=== PATIENT | female | born 1955 | race Caucasian/White ===

== ENCOUNTER 2018-08-11 14:39 | Emergency (ER) | payer MEDICARE, OTHER ==
[2018-08-11 14:44] VITALS: BMI 23.6
--- NOTE | 2018-08-11 16:07 | PDOC ---
Attending Attestation - [facility] HPI: 08/11/18 17:00 The patient is a 63 year old female, with a significant PMH of hypertension, hyperlipidemia, and osteopenia, who presents to the emergency department with 3 days of worsening left sided headache. The patient states the headache is worse over the left eye. The patient states her headache today feels like her typical headaches. The patient also endorses nausea with vomiting, dizziness and hot & cold sensations. The patient denies chest pain, or shortness of breath. Denies fever, chills, vomit, diarrhea and constipation. Denies dysuria, frequency, urgency and hematuria. Allergies: iodine, gabapentin Documentation prepared by Sergio Kincaid, acting as medical malpractice paralegal for Susannah Rhodes DO. <Sergio Kincaid - Last Filed: 08/11/18 17:00> - Physicial Exam PE: 08/11/18 18:57 Constitutional: (+) mildly anxious. Awake, alert, oriented. No acute distress. Head: Normocephalic. Atraumatic Eyes: PERRL. EOMI. Conjunctivae are not pale. ENT: Mucous membranes are moist and intact. Posterior pharynx without exudate or erythema. Uvula midline. Neck: Supple. Full ROM. No lymphadenopathy. Cardiovascular: Regular rate. Regular rhythm. S1, S2 regular. Distal pulses are 2+ and symmetric. Pulmonary/Chest: No evidence of respiratory distress. Clear to auscultation bilaterally No wheezing, rales or rhonchi. Abdominal: Soft and non-distended. There is no tenderness. No rebound, guarding or rigidity. No organomegaly. No palpable masses. Good bowel sounds. Back: No CVA tenderness. Musculoskeletal: No edema. No cyanosis. No clubbing. Full range of motion in all extremities. Nocalf tenderness. Radial/pedal pulses are intact and 2+ bilaterally Skin: Skin is warm and dry. No petechiae. No purpura. Neurological: Alert and oriented to person, place, and time. Cranial nerves II -XII are grossly intact. Normal speech. Strength is grossly symmetric. No sensory deficits. Psychiatric: Good eye contact. Normal interaction, affect and behavior. - Medical Decision Making 08/11/18 18:57 Documentation prepared by Samira Christianson, acting as medical malpractice paralegal for Susannah Rhodes DO <Samira Christianson - Last Filed: 08/11/18 18:57> - Resident Resident Name: Marcio Sosa - ED Attending Attestation I have performed the following: I have examined & evaluated the patient, The case was reviewed & discussed with the resident, I agree w/resident's findings & plan, Exceptions are as noted - HPI HPI: 08/11/18 19:39 63yo female with a 3 week hx of ringing sensation to her head and a feeling of anxiety. States feeling depressed since the loss of 2 family members. Pt denies SI/HI. No blurred vision, no paresthesias. No neck pain. NO f/c. NO cp/sob. No abd pain. NO n/v/d. No dysuria. No weakness. Saw her PMD as an outpt who recommended MRI imaging. Also follows with the [facility] therapists. - Medical Decision Making 08/11/18 16:07 I, Dr. Susannah Rhodes, DO, attest that this document has been prepared under my direction and personally reviewed by me in its entirety. I further attest, that it accurately reflects all work, treatment, procedures and medical decision -making performed by me. 08/11/18 17:54 a/p: 63yo female with a 3 week hx of ringing sensation and ma in her head- no injury -also states she has been having depression/anxiety secondary to the loss of 2 family members, has been speaking with a therapist at [facility], but is requesting a psychiatrist as an outpt -denies SI/HI -states she feels tearful and depressed -c/o ringing sensation to her head and ma -neuro intact -no meningeal signs -ma x 3 weeks, gradual onset -will send labs, head ct, will monitor and reassess 08/11/18 18:[address] negative labs reviewed pt pending cxr 08/11/18 19:38 cxr clear 08/11/18 20:24 ma resolved pt ambulatory in the ED with a steady gait <Susannah Rhodes - Last Filed: 08/11/18 20:25> Heart Score/ECG Review - ECG Intrepretation Comment:: 08/11/18 17:57 sinus at 72, nl axis, nl interval, no acute st/t wave findings <Susannah Rhodes - Last Filed: 08/11/18 20:25>
--- NOTE | 2018-08-11 16:08 | PDOC ---
History of Present Illness - General Chief Complaint: Headache Stated Complaint: Headache Time Seen by Provider: 08/11/18 16:04 History Source: Patient, Old Records Exam Limitations: Language Barrier - History of Present Illness Initial Comments: HPI: 63 y/o female presenting to [facility] ER complaining of headache and generalized weakness worsening over the past three days. Pain is worse over her left eye but radiates through the entire head. Endorses left eye pain and bilateral lacrimation. Symptoms started with a sense of nervousness and the sounds of birds chirping and crickets. Endorses blurry vision, dizziness, nausea without emesis, chest and abdominal pain described as nervousness. Has not attempted relief with OTC medications. Takes percocet daily for chronic pain Pt has a h/ o of similar symptoms. Was scheduled to have either an outpatient MRI or CT but did not have it performed secondary to anxiety. Reported to ED attending that she has a long standing anxiety and depression. Further reports multiple close family member deaths in the past several months. Follows with a therapist but would like to be evaluated by a psychiatrist as an outpatient. Pt is Divehi speaking only. Telephone healthcare interpreter used for interview. PCP: [facility]. Unable to recall name. Medical Hx: - HTN - Chronic Pain Syndrome, managed with percocet - Onychomycosis - Anxiety with Depression - Gerd - Clicking tinnitus of R ear Past History - Past Medical History Allergies/Adverse Reactions: Allergies Allergy/AdvReac Type Severity Reaction Status Date / Time iodine AdvReac Severe Difficulty Verified 08/11/18 14:44 Breathing gabapentin AdvReac Unknown nausea, Verified 08/11/18 14:44 vomiting Home Medications: Ambulatory Orders Aspirin [ASA -] 81 mg PO DAILY 06/09/16 Atorvastatin Ca [Lipitor] 10 mg PO HS 06/09/16 Losartan Potassium [Cozaar -] 50 mg PO DAILY 01/06/18 Diclofenac Sodium [Voltaren] 2 gm TP TID PRN 30 Days #3 tube 07/13/18 Nystatin 15 gm TP BID 07/13/18 Omeprazole 40 mg PO DAILY 07/13/18 Ergocalciferol (Vitamin D2) [Vitamin D2] 50,000 unit PO Q7D #4 capsule 08/05/18 Oxycodone HCl/Acetaminophen [Percocet 5-325 mg Tablet] 1 tab PO TID PRN #60 tablet MDD 3 08/05/18 Asthma: No Cancer: No Cardiac Disorders: No COPD: No Dementia: No Diabetes: No GI Disorders: No Disorders: No HTN: Yes Hypercholesterolemia: Yes Liver Disease: No Seizures: No Thyroid Disease: No - Suicide/Smoking/Psychosocial Hx Smoking History: Never smoked Have you smoked in the past 12 months: No Information on smoking cessation initiated: No Hx Alcohol Use: No Drug/Substance Use Hx: No Substance Use Type: None Hx Substance Use Treatment: No Review of Systems - Review of Systems Able to Perform ROS?: Yes Comments:: In addition to that documented in the HPI above, the additional ROS was obtained : Constitutional: Denies fevers or chills Eyes: Endorses blurry vision but would not clarify if this was a chronic or acute change ENMT: Denies sore throat CV: Endorses chest pain at center of chest when pressing Resp: Denies SOB GI: Denies vomiting or diarrhea : Denies painful urination MSK: Denies recent trauma Skin: Denies new rashes Neuro: Denies new numbness or tingling or weakness Endocrine: Denies polyuria Heme: Denies bleeding or bruising Is the patient limited Cymro proficient: Yes *Physical Exam - Vital Signs Last Vital Signs Temp Pulse Resp BP Pulse Ox 98.8 F 71 18 139/65 100 08/11/18 14:42 08/11/18 14:42 08/11/18 14:42 08/11/18 14:42 08/11/18 14:42 - Physical Exam Comments: Constitutional: Well-developed, well-nourished adult female in no acute distress or obvious discomfort. Found semi-fowlers in hospital bed. Alert and oriented x4. Answered all questions appropriately and completely. Speech was non -labored, non-pressured. Head: Normocephalic. No obvious external signs of trauma. Eyes: Pupils 4mm and PERRL bilaterally. Sclerae white. Conjunctiva moist and not injected. EARS: Hearing grossly intact. NOSE: No nasal discharge. THROAT: Oral cavity and pharynx normal. No inflammation, swelling, exudate, or lesions. Moist mucosal membranes. Neck: Supple, trachea is midline. Cardiovascular: Regular rate and regular rhythm. No murmur, rubs, clicks, or gallops. Peripheral pulses: Radial pulses full. Respiratory: Breathing unlabored. Equal chest rise and fall. Clear to auscultation bilaterally. No stridor, no wheezing, no rhonchi. Gastrointestinal: abdomen is soft, non-tender, non-distended. Neuro: Alert and oriented. Moving all four extremities spontaneously. Cranial nerves intact. Intact sensation to all four extremities. Upper and lower extremities: proximal and distal strength 5/5. Phlebotomist Associate strength 5/5 - equal and symmetric. Plantar flexion and dorsiflexion 5/5. Walked in room but used surfaces to assist. Skin: Warm, dry, and intact. Psych: Affect: nervous. Mood: anxious. Tearful during exam. Moderate Sedation - Procedure Monitoring Vital Signs: Procedure Monitoring Vital Signs Temperature 98.8 F 08/11/18 14:42 Pulse Rate 71 08/11/18 14:42 Respiratory Rate 18 08/11/18 14:42 Blood Pressure 139/65 08/11/18 14:42 O2 Sat by Pulse Oximetry (%) 100 08/11/18 14:42 ED Treatment Course - LABORATORY CBC & Chemistry Diagram: 08/11/18 17:13 08/11/18 17:13 Medical Decision Making - Medical Decision Making *Reviewed vital signs, nursing notes, and prior visit documentation (if available). 63 y/o female presenting with three days of worsening headache radiating from left eye with eye pain and lacrimation. H/o of similar symptoms, but has not completed outpatient workup. Also endorsing increased anxiety/depression following the of multiple family members. Suspect headache is possible cluster headache versus migraine. Will administer low dose oxygen therapy via nasal cannula, reglan, and ibuprofen. Will obtain head CT given age and poor adherence to outpatient follow up. Based on pts description of chest and abdominal pain suspect this is related to anxiety. Will obtain EKG, CXR, and basic labs. Will not obtain cardiac profile given description of symptoms and single risk factor of HTN. CBC unremarkable for anemia or leukocytosis. CMP unremarkable for electrolyte derangement. LFTs not elevated. BUN and Cr at baseline. eGFR >60. Head CT unremarkable for acute intracranial process. CXR unremarkable for acute cardiopulmonary process per ED wet read. Formal radiology report to follow. 18:52 Pt self ambulate without difficulty to doctors station to explain that she was nervous. Reassured pt. 20:00 Pt reasessed. States her headache and dizziness have resolved. Continues to complain of nervousness. Administered Vistaril. Will provide outpatient psychiatric referral. Continue to suspect cluster headache versus migraine headache with overlying acute anxiety exacerbation. Will provided outpatient referral to neurology for chronic headaches and ENT for tinnitus versus auditory migraine component. Discussed imaging and laboratory results with pt. Answered all questions. Provided return precautions. Pt expressed verbal understanding and agreement with plan to discharge home with outpatient follow up. *DC/Admit/Observation/Transfer Diagnosis at time of Disposition: Headache around the eyes - Discharge Dispostion Disposition: HOME Condition at time of disposition: Good Decision to Admit order: No - Referrals Referrals: Modesta Pavon MD [Primary Care Provider] - Светлана Koehler MD [Staff Physician] - Dalton Nunez MD [Staff Physician] - Pavan Handley MD [Staff Physician] - - Patient Instructions Printed Discharge Instructions: DI for Migraine, DI for Headache, DI for Cluster Headache Additional Instructions: You were seen today for a headache, dizziness, and nervousness. Your xrays and blood work did not show signs of an emergent condition. Your headache got better with Reglan and Ibuprofen. You were given a low dose of Vistaril for your anxiety. You should follow up with your primary care doctor within the next week to make sure you are healing. I have also provided referrals to the following doctors: 1) Dr. Koehler for psychiatry 2) Dr. Nunez for neurology and help with your headaches 3) Dr. Handley for ear, nose and throat for help with the noise in your ears The numbers for each of these doctors in included in this packet. You will need to call to make an appointment. I have attached the results of todays visit to this packet. Take it with you to your doctors appointments so they can see it. Go to the nearest emergency department if your condition worsens or you feel like you need additional emergency evaluation. Debe hacer un seguimiento con vigil mdico de atencin primaria dentro de la prxima semana para asegurarse de que est sanando. Tahir bravo proporcionado referencias a los siguientes mdicos: 1) Dr. Koehler para psiquiatra. 2) Dr. Nunez para neurologa y ayuda con irina amadeo de live. 3) Dr. Handley para el odo, nariz y garganta para ayuda con el ruido en irina odos Los nmeros para cada mary de estos mdicos estn incluidos en alina paquete. Tendr que llamar para hacer pablo linda. Adjunto los resultados de la visita de dionna a alina paquete. Llvelo con usted a las citas con vigil mdico para que lo puedan yoni. Dirjase al departamento de emergencias ms cercano si vigil condicin empeora o si mikel que necesita pablo evaluacin de emergencia adicional. Print Language: ITALIAN - Post Discharge Activity
[2018-08-11] MEDS ORDERED: METOCLOPRAMIDE HCL INJECTION 10 MG/2 ML VIAL IVPUSH ONE (16:44)
[2018-08-11] MEDS ORDERED: IBUPROFEN 600 MG TABLET (FP) PO ONE ×2 (16:45→17:02)
[2018-08-11] MEDS ORDERED: LACTATED RINGERS SOLUTION 1000 ML INFUS.BAG IV ONE (16:45)
[2018-08-11] MEDS ORDERED: METOCLOPRAMIDE HCL INJECTION 10 MG/2 ML VIAL ONE (17:01)
[2018-08-11 17:58] LABS: ALBUMIN 3.8 g/dl (3.4-5.0); ALK PHOS 52 U/L (45-117); ANION GAP 7 MMOL/L (8-16); BILIRUBIN,TOTAL 0.2 mg/dL (0.2-1); BLOOD UREA NITROGEN 23 mg/dL (7-18); CALCIUM 8.9 mg/dL (8.5-10.1); CHLORIDE 105 mmol/L (98-107); CO2 27 mmol/L (21-32); CREATININE 0.8 mg/dL (0.55-1.3); GLUCOSE,RANDOM 85 mg/dL (74-106); POTASSIUM 4.1 mmol/L (3.5-5.1); SGOT/AST 17 U/L (15-37); SGPT/ALT 22 U/L (13-61); SODIUM 138 mmol/L (136-145); TOT PROT 7.1 g/dl (6.4-8.2)
[2018-08-11 18:48] LABS: BASO % 0.6 % (0-2.0); EOS % 2.8 % (0-4.5); LYMPH % 17.6 % (8-40); MCH 31.7 pg (25.7-33.7); MCHC 35.2 g/dl (32.0-36.0); MEAN CELL VOLUME 90.1 fl (80-96); MEAN PLT VOLUME 8.1 fl (7.5-11.1); MONO % 5.7 % (3.8-10.2); NEUT % 73.3 % (42.8-82.8); PLATELET COUNT 289 K/MM3 (134-434); RBC 4.11 M/mm3 (3.60-5.2); RDW 13.1 % (11.6-15.6); WHITE BLOOD COUNT 8.7 K/mm3 (4.0-10.0)
[2018-08-11] MEDS ORDERED: hydrOXYzine PAMOATE 25 MG CAPSULE (FP) PO ONE (19:06)
[2018-08-11] MEDS ORDERED: hydrOXYzine HCL 50 MG/ML VIAL IM ONE (19:53)
[2018-08-11 20:08] VITALS: BP 138/57; PULSE 72; TEMP 98.6
--- NOTE | 2018-08-12 09:40 | EKG ---
Test Reason : Blood Pressure : / mmHG Vent. Rate : 072 BPM Atrial Rate : 072 BPM P-R Int : 122 ms QRS Dur : 084 ms QT Int : 402 ms P-R-T Axes : 068 077 063 degrees QTc Int : 440 ms NORMAL SINUS RHYTHM POSSIBLE LEFT ATRIAL ENLARGEMENT BORDERLINE ECG WHEN COMPARED WITH ECG OF 15-APR-2015 14:45, NO SIGNIFICANT CHANGE WAS FOUND Confirmed by AGATA HENDERSON, NICK ([id number]) on 08/12/2018 9:39:42 AM Referred By: Confirmed By:NICK PARMAR MD
== END 2018-08-11 21:51 | disposition home or self-care (01) ==
LOC: JER 14:39
PROC: 3E033GC Introduction of Other Therapeutic Substance into Peripheral Vein, Percutaneous Approach (ICD-10-PCS; principal; 2018-08-11)
DX: R51 Headache (principal); I10 Essential (primary) hypertension; G89.4 Chronic pain syndrome; K21.9 Gastro-esophageal reflux disease without esophagitis; F41.9 Anxiety disorder, unspecified; H93.11 Tinnitus, right ear
CPT/HCPCS: 36415; 70450-TC; 71046-TC-FY; 80053; 85025; 93005; 93010; 99283-25

== ENCOUNTER 2019-05-27 18:32 | Observation (INO) | payer MEDICARE, OTHER ==
[2019-05-27 18:54] VITALS: BMI 25.7
[2019-05-27] MEDS ORDERED: SODIUM CHLORIDE 1,000 ML IV STA (19:25)
[2019-05-27] MEDS ORDERED: ASPIRIN 81 MG CHEWABLE TABLETS PO ONE (19:25)
[2019-05-27 19:53] LABS: BASO % 0.6 % (0-2.0); EOS % 0.2 % (0-4.5); HEMATOCRIT 40.8 % (32.4-45.2); HEMOGLOBIN 13.5 GM/dL (10.7-15.3); LYMPH % 18.9 % (8-40); MCH 29.7 pg (25.7-33.7); MEAN CELL VOLUME 90.2 fl (80-96); MEAN PLT VOLUME 7.6 fl (7.5-11.1); MONO % 6.9 % (3.8-10.2); NEUT % 73.4 % (42.8-82.8); PLATELET COUNT 256 K/MM3 (134-434); RBC 4.53 M/mm3 (3.60-5.2); RDW 12.7 % (11.6-15.6); WHITE BLOOD COUNT 9.6 K/mm3 (4.0-10.0)
--- NOTE | 2019-05-27 19:53 | PDOC ---
History of Present Illness - General Chief Complaint: Chest Pain Stated Complaint: CHEST PAIN Time Seen by Provider: 05/27/19 19:24 History Source: Patient Exam Limitations: No Limitations - History of Present Illness Initial Comments: 05/27/19 19:46 63 yo female pmh HTN, HLD and chronic back pain presents to the ED for 3 days of worsening non exertional CP with associated palpitations and SOB. Pt states the pain began 3 days ago while resting at home, described as pressure like without radiation. Pt states she has become SOB increasingly while laying flat and walking a approx 100 feet. Denies cardiac hx, never had stress test or echo , never seen cardiology, denies weight changes or hx of substance abuse. Pt denies calf tenderness, smoking hx, recent travel, F/C/N/V, abdominal pain, unilateral neurological symptoms. Pt admits to intermitted bilateral lower limb swelling, currently does not have any Past History - Past Medical History Allergies/Adverse Reactions: Allergies Allergy/AdvReac Type Severity Reaction Status Date / Time iodine AdvReac Severe Difficulty Verified 05/27/19 18:50 Breathing gabapentin AdvReac Unknown nausea, Verified 05/27/19 18:50 vomiting Home Medications: Ambulatory Orders Aspirin [ASA -] 81 mg PO DAILY 06/09/16 Losartan Potassium [Cozaar -] 50 mg PO DAILY 01/06/18 Nystatin 15 gm TP BID 07/13/18 Omeprazole 40 mg PO DAILY 07/13/18 Fluoxetine HCl [Prozac -] 10 mg PO DAILY 10/12/18 Hydrochlorothiazide [Hctz -] 25 mg PO DAILY 10/12/18 Diclofenac Sodium [Voltaren] 2 gm TP TID PRN #3 tube 04/12/19 Acetaminophen [Tylenol -] 500 mg PO Q8H #90 tablet 05/19/19 Ergocalciferol (Vitamin D2) [Vitamin D2] 50,000 unit PO Q7D #4 capsule 05/19/19 hydrOXYzine PAMOATE [Vistaril -] 25 mg PO BID #60 capsule 05/19/19 Asthma: No Cancer: No Cardiac Disorders: No COPD: No CHF: No Dementia: No Diabetes: No GI Disorders: No Disorders: No HTN: Yes Hypercholesterolemia: Yes Liver Disease: No Seizures: No Thyroid Disease: No - Psycho Social/Smoking Cessation Hx Smoking History: Never smoked Have you smoked in the past 12 months: No Information on smoking cessation initiated: No Hx Alcohol Use: No Drug/Substance Use Hx: No Substance Use Type: None Hx Substance Use Treatment: No Review of Systems - Review of Systems Constitutional: No: Chills, Fever HEENTM: No: Blurred Vision Respiratory: Yes: Orthopnea, Shortness of Breath. No: Cough, Wheezing Cardiac (ROS): Yes: Chest Pain. No: Edema ABD/GI: No: Constipated, Diarrhea, Nausea, Vomiting : No: Burning, Dysuria, Flank Pain, Hematuria Musculoskeletal: Yes: Back Pain (chronic) Integumentary: No: Change in Color Neurological: No: Headache, Numbness, Paresthesia, Weakness *Physical Exam - Vital Signs Last Vital Signs Temp Pulse Resp BP Pulse Ox 99.4 F 71 17 165/82 100 05/27/19 18:47 05/27/19 18:47 05/27/19 18:47 05/27/19 18:47 05/27/19 18:47 - Physical Exam General Appearance: Yes: Nourished, Appropriately Dressed. No: Apparent Distress HEENT: positive: EOMI, [place] Neck: positive: Supple. negative: Rigid Respiratory/Chest: positive: Lungs Clear, Normal Breath Sounds. negative: Accessory Muscle Use, Crackles, Rales, Rhonchi, Stridor, Wheezing Cardiovascular: positive: Regular Rhythm, Regular Rate, S1, S2. negative: Edema , JVD, Murmur Vascular Pulses: Dorsalis-Pedis (R): 4+, Doralis-Pedis (L): 4+ Gastrointestinal/Abdominal: positive: Flat, Soft. negative: Protuberent, Distended, Guarding, Rebound, Tenderness Musculoskeletal: negative: CVA Tenderness Extremity: positive: Normal Inspection, Normal Range of Motion Integumentary: positive: Normal Color, Dry, Warm Neurologic: positive: Fully Oriented, Alert, Normal Mood/Affect, Normal Response Heart Score/ECG Review - History History: Slightly suspicious - Electrocardiogram EKG: Normal - Age Age: >/= 65 - Risk Factors Risk Factors Heart Score: Yes Hx Hypercholesterolemia, Yes Hx Hypertension, No Positive family hx of cardiac disease, Yes Hx Obesity Based on the list above the patient has:: >/=3 risk factors or Hx atherosclerotic disease - Troponin Troponin: </= normal limit - Score Heart Score - Total: 4 - ECG Intrepretation Rhythm: Regular Rhythm - [place]: Normal ED Treatment Course - LABORATORY CBC & Chemistry Diagram: 05/27/19 19:42 05/27/19 19:42 Medical Decision Making - Medical Decision Making 05/27/19 20:07 63 yo female pmh HTN, HLD and chronic back pain presents to the ED for 3 days of worsening non exertional CP with associated palpitations and SOB. Pt states the pain began 3 days ago while resting at home, described as pressure like without radiation. Pt states she has become SOB increasingly while laying flat and walking a approx 100 feet. Denies cardiac hx, never had stress test or echo , never seen cardiology, denies weight changes or hx of substance abuse. Pt denies calf tenderness, smoking hx, recent travel, F/C/N/V, abdominal pain, unilateral neurological symptoms. Pt admits to intermitted bilateral lower limb swelling, currently does not have any vitals WNL DDX INLT: ACS, PE, CH, GERD, MSK Labs including trops and BNP WNL EKG NSR without concerning signs of ischemia CXR WNL Pt heart score 4, pt will require tele obs admission and repeat trops 05/27/19 20:46 Micro blog sent to hospitalist 05/27/19 22:01 Hospitalist accept admission to tele obs Discharge - Discharge Information Problems reviewed: Yes Clinical Impression/Diagnosis: Chest pain Qualifiers: Chest pain type: unspecified Qualified Code(s): R07.9 - Chest pain, unspecified Condition: Stable - Admission Yes - Follow up/Referral - Patient Discharge Instructions - Post Discharge Activity
[2019-05-27] MEDS ORDERED: ASPIRIN 81 MG CHEWABLE TABLETS ONE (19:59)
[2019-05-27 20:05] LABS: INR 0.95 (0.83-1.09); PROTHROMBIN TIME (PATIENT) 11.2 SEC (9.7-13.0)
[2019-05-27 20:18] LABS: ALBUMIN 4.1 g/dl (3.4-5.0); BILIRUBIN,TOTAL 0.3 mg/dL (0.2-1); BLOOD UREA NITROGEN 20.9 mg/dL (7-18); CALCIUM 9.2 mg/dL (8.5-10.1); CREATININE 0.9 mg/dL (0.55-1.3); MAGNESIUM 2.2 mg/dL (1.8-2.4); N-TERMINAL BNP 328.4 pg/ml (5-125); POTASSIUM 4.2 mmol/L (3.5-5.1); TOT PROT 7.6 g/dl (6.4-8.2)
--- NOTE | 2019-05-27 20:31 | PDOC ---
Documentation entered by Guerita Melgar SCRIBE, acting as scribe for Trey Valdez MD. Trey Valdez MD: This documentation has been prepared by the aroldoibe, Guerita Melgar SCRIBE, under my direction and personally reviewed by me in its entirety. I confirm that the documentation accurately reflects all work, treatment, procedures, and medical decision making performed by me. Attending Attestation - Resident Resident Name: Connor Pascual - ED Attending Attestation I have performed the following: I have examined & evaluated the patient, The case was reviewed & discussed with the resident, I agree w/resident's findings & plan, Exceptions are as noted - HPI HPI: 05/27/19 19:48 64 F with h/o HTN, HLD presenting with 3 days of constant chest pain. Endorses SOB only when she lies flat. Denies any BHANDARI. Denies exertional or pleuritic nature of chest pain. Denies leg swelling. No F/C. No cough. - Physicial Exam PE: 05/27/19 20:03 "GENERAL: Awake, alert, and fully oriented, in no acute distress. HEAD: No signs of trauma EYES: PERRLA, EOMI, sclera anicteric, conjunctiva clear ENT: Auricles normal inspection, hearing grossly normal, nares patent, oropharynx clear without exudates. Moist mucosa NECK: Nontender, no stepoffs, Normal ROM, supple, no lymphadenopathy, JVD, or masses LUNGS: Breath sounds equal, clear to auscultation bilaterally. No wheezes, and no crackles HEART: Regular rate and rhythm, normal S1 and S2, no murmurs, rubs or gallops ABDOMEN: Soft, nontender, normoactive bowel sounds. No guarding, no rebound. No masses EXTREMITIES: Normal range of motion, no edema. No clubbing or cyanosis. No cords, erythema, or tenderness NEUROLOGICAL: Cranial nerves II through XII intact. 5/5 strength and sensation in all extremities, Normal speech, normal gait, normal cerebellar function SKIN: Warm, Dry, normal turgor, no rashes or lesions noted. - Medical Decision Making 05/27/19 20:03 64 F with chest pain x 3 days. Will r/o ACS. Pt with no PE risk factors, no clinical signs of DVT, normal vitals. Also consider CHF given orthopnea but no clinical signs of volume overload on exam. - Labs, trop, BNP - CXR - Admit tele
--- NOTE | 2019-05-27 21:09 | PN ---
Teaching Attending Note Name of Resident: Moriah Garcia ATTENDING PHYSICIAN STATEMENT I saw and evaluated the patient. I reviewed the resident's note and discussed the case with the resident. I agree with the resident's findings and plan as documented. SUBJECTIVE: Patient is a 63 year old woman with PMH of HTN, HLD and Chronic back pain who presents to the ER for 3 days of worsening nonexertional chest pain associated with palpitations and SOB. Pain began 3 days ago while resting at home, described as pressure like without radiation. She has become SOB increasingly while laying flat and walking approx 100 feet. Denies cardiac history. Has never had stress test or echo, seen cardiology, or had recent weight changes. Does not smoke, abuse alcohol or illicit drugs. Denies calf tenderness, fever, chills, nausea, vomiting, change in bowel habit, recent travel or sick contacts. Patient admits to intermitted bilateral lower limb swelling but currently has no leg swelling. No FH of CAD. OBJECTIVE: Alert Vital Signs Period Temp Pulse Resp BP Sys/Borrego Pulse Ox Last 24 Hr 99.4 F 71 17 165/82 100 HEENT: No Jaundice, eye redness or discharge, PERRLA, EOMI. Normocephalic, atraumatic. External ears are normal and hearing is grossly intact. No nasal discharge. Neck: Supple, nontender. No palpable adenopathy or thyromegaly. No JVD Chest: Good effort. Clear to auscultation and percussion. Heart: Regular. No S3, rub or murmur Abdomen: Not distended, soft, nontender and no HSM. No rebound or guarding. Normal bowel sounds. Ext: Peripheral pulses intact. No leg edema. Skin: Warm and dry. No petechiae, rash or ecchymosis. Neuro: Alert. Oriented x3. CN 2-12 grossly intact. Sensation grossly intact in all four extremities and DTR are symmetric. Psych: Appropriate mood and affect. Good insight. Home Medications Medication Instructions Recorded Aspirin [ASA -] 81 mg PO DAILY 06/09/16 Losartan Potassium [Cozaar -] 50 mg PO DAILY 01/06/18 Nystatin 15 gm TP BID 07/13/18 Omeprazole 40 mg PO DAILY 07/13/18 Fluoxetine HCl [Prozac -] 10 mg PO DAILY 10/12/18 Hydrochlorothiazide [Hctz -] 25 mg PO DAILY 10/12/18 Diclofenac Sodium [Voltaren] 2 gm TP TID PRN #3 tube 04/12/19 Acetaminophen [Tylenol -] 500 mg PO Q8H #90 tablet 05/19/19 Ergocalciferol (Vitamin D2) 50,000 unit PO Q7D #4 capsule 05/19/19 [Vitamin D2] hydrOXYzine PAMOATE [Vistaril -] 25 mg PO BID #60 capsule 05/19/19 Abnormal Lab Results 05/27/19 19:42 Anion Gap 7 L BUN 20.9 H Random Glucose 129 H B-Natriuretic Peptide 328.4 H ASSESSMENT AND PLAN: 1. Chest pain - Patient became pain free while in the ER. Got Aspirin 162 mg in the ER. EKG is NSR with LAE and no ischemic changes and initial troponin is negative. CXR shows mild cardiomegaly but no infiltrates, pneumothorax or effusion. Will admit to telemetry to rule out ACS, get ECHO and check HbA1c. Urinalysis pending. Will continue comprehensive care for all of patients comorbid conditions. 2. Hypertension - Restart suitable outpatient antihypertensive drugs when clinically appropriate. 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 Nonpharmacologic measures to control hypertension like weight loss , salt restriction and exercise discussed. Importance of adherence to treatment regimen and attainment of normotension emphasized. 3. DVT prophylaxis - Lovenox 40 mg SQ q 24 hours. 4. Advance directives - Full code
[2019-05-27] MEDS ORDERED: PROCHLORPERAZINE INJECTION 10 MG/2 ML VIAL IVPB PRN (22:28)
--- NOTE | 2019-05-27 22:28 | HP ---
CHIEF COMPLAINT: PCP: HISTORY OF PRESENT ILLNESS: ER course was notable for: (1) (2) (3) Recent Travel: PAST MEDICAL HISTORY: PAST SURGICAL HISTORY: Social History: Smoking: Alcohol: Drugs: Allergies iodine Adverse Reaction (Severe, Verified 05/27/19 18:50) Difficulty Breathing gabapentin Adverse Reaction (Unknown, Verified 05/27/19 18:50) nausea, vomiting HOME MEDICATIONS: Home Medications Medication Instructions Recorded Aspirin [ASA -] 81 mg PO DAILY 06/09/16 Losartan Potassium [Cozaar -] 50 mg PO DAILY 01/06/18 Nystatin 15 gm TP BID 07/13/18 Omeprazole 40 mg PO DAILY 07/13/18 Fluoxetine HCl [Prozac -] 10 mg PO DAILY 10/12/18 Hydrochlorothiazide [Hctz -] 25 mg PO DAILY 10/12/18 Diclofenac Sodium [Voltaren] 2 gm TP TID PRN #3 tube 04/12/19 Acetaminophen [Tylenol -] 500 mg PO Q8H #90 tablet 05/19/19 Ergocalciferol (Vitamin D2) 50,000 unit PO Q7D #4 capsule 05/19/19 [Vitamin D2] hydrOXYzine PAMOATE [Vistaril -] 25 mg PO BID #60 capsule 05/19/19 REVIEW OF SYSTEMS CONSTITUTIONAL: Absent: fever, chills, diaphoresis, generalized weakness, malaise, loss of appetite, weight change HEENT: Absent: rhinorrhea, nasal congestion, throat pain, throat swelling, difficulty swallowing, mouth swelling, ear pain, eye pain, visual changes CARDIOVASCULAR: Absent: chest pain, syncope, palpitations, irregular heart rate, lightheadedness , peripheral edema RESPIRATORY: Absent: cough, shortness of breath, dyspnea with exertion, orthopnea, wheezing, stridor, hemoptysis GASTROINTESTINAL: Absent: abdominal pain, abdominal distension, nausea, vomiting, diarrhea, constipation, melena, hematochezia GENITOURINARY: Absent: dysuria, frequency, urgency, hesitancy, hematuria, flank pain, genital pain MUSCULOSKELETAL: Absent: myalgia, arthralgia, joint swelling, back pain, neck pain SKIN: Absent: rash, itching, pallor HEMATOLOGIC/IMMUNOLOGIC: Absent: easy bleeding, easy bruising, lymphadenopathy, frequent infections ENDOCRINE: Absent: unexplained weight gain, unexplained weight loss, heat intolerance, cold intolerance NEUROLOGIC: Absent: headache, focal weakness or paresthesias, dizziness, unsteady gait, seizure, mental status changes, bladder or bowel incontinence PSYCHIATRIC: Absent: anxiety, depression, suicidal or homicidal ideation, hallucinations. PHYSICAL EXAMINATION Vital Signs - 24 hr 05/27/19 18:47 Temperature 99.4 F Pulse Rate 71 Respiratory 17 Rate Blood Pressure 165/82 O2 Sat by Pulse 100 Oximetry (%) GENERAL: Awake, alert, and fully oriented, in no acute distress. HEAD: Normal with no signs of trauma. EYES: Pupils equal, round and reactive to light, extraocular movements intact, sclera anicteric, conjunctiva clear. No lid lag. EARS, NOSE, THROAT: Ears normal, nares patent, oropharynx clear without exudates. Moist mucous membranes. NECK: Normal range of motion, supple without lymphadenopathy, JVD, or masses. LUNGS: Breath sounds equal, clear to auscultation bilaterally. No wheezes, and no crackles. No accessory muscle use. HEART: Regular rate and rhythm, normal S1 and S2 without murmur, rub or gallop. ABDOMEN: Soft, nontender, not distended, normoactive bowel sounds, no guarding, no rebound, no masses. No hepatomegaly or splenomegaly. MUSCULOSKELETAL: Normal range of motion at all joints. No bony deformities or tenderness. No CVA tenderness. UPPER EXTREMITIES: 2+ pulses, warm, well-perfused. No cyanosis. No clubbing. No peripheral edema. LOWER EXTREMITIES: 2+ pulses, warm, well-perfused. No calf tenderness. No peripheral edema. NEUROLOGICAL: Cranial nerves II-XII intact. Normal speech. Normal gait. PSYCHIATRIC: Cooperative. Good eye contact. Appropriate mood and affect. SKIN: Warm, dry, normal turgor, no rashes or lesions noted, normal capillary refill. Laboratory Results - last 24 hr 05/27/19 05/27/19 05/27/19 19:42 19:42 19:42 WBC 9.6 RBC 4.53 Hgb 13.5 Hct 40.8 MCV 90.2 MCH 29.7 MCHC 33.0 RDW 12.7 Plt Count 256 MPV 7.6 Absolute Neuts (auto) 7.0 Neutrophils % 73.4 Lymphocytes % 18.9 Monocytes % 6.9 Eosinophils % 0.2 D Basophils % 0.6 Nucleated RBC % 0 PT with INR 11.20 INR 0.95 Sodium 139 Potassium 4.2 Chloride 104 Carbon Dioxide 29 Anion Gap 7 L BUN 20.9 H Creatinine 0.9 Est GFR (CKD-EPI)AfAm 77.22 Est GFR (CKD-EPI)NonAf 66.63 Random Glucose 129 H Calcium 9.2 Magnesium 2.2 Total Bilirubin 0.3 AST 16 ALT 27 Alkaline Phosphatase 50 Troponin I B-Natriuretic Peptide 328.4 H Total Protein 7.6 Albumin 4.1 05/27/19 19:42 WBC RBC Hgb Hct MCV MCH MCHC RDW Plt Count MPV Absolute Neuts (auto) Neutrophils % Lymphocytes % Monocytes % Eosinophils % Basophils % Nucleated RBC % PT with INR INR Sodium Potassium Chloride Carbon Dioxide Anion Gap BUN Creatinine Est GFR (CKD-EPI)AfAm Est GFR (CKD-EPI)NonAf Random Glucose Calcium Magnesium Total Bilirubin AST ALT Alkaline Phosphatase Troponin I < 0.02 B-Natriuretic Peptide Total Protein Albumin ASSESSMENT/PLAN: #Hospital Acquired Pneumonia vs. Withdrawal c/w Vancomycin, Zosyn and Levaquin according to uptodate guidelines f/u Chest CT CT AP appreciated f/u BCx. and Sputum Cx. Will get records from [facility] in AM #RA c/w Plaquenil #Polysubstance Abuse medication reconcilitation resume Suboxone c/w Seroquel 50mg ( confirm with pharmacy that Pt. takes 100mg) #FEN monitor electrolytes and replete as needed NPO, pending dysphagia screen #DVT Ppx. Lovenox 40 ATTENDING PHYSICIAN STATEMENT I saw and evaluated the patient. I reviewed the resident's note and discussed the case with the resident. I agree with the resident's findings and plan as documented. SUBJECTIVE: OBJECTIVE: ASSESSMENT AND PLAN:
[2019-05-27] MEDS ORDERED: MELATONIN 5 MG TABLETS PO ONE (22:32)
--- NOTE | 2019-05-27 22:38 | HP ---
CHIEF COMPLAINT: chest pressure PCP: Jayson HISTORY OF PRESENT ILLNESS: Ms. Vernon Landers is a 64y/o female with HTN, HLD, depression, anxiety, and cervical radiculopathy who presents with intermittent chest pressure x 3 days. She reports the pressure is sudden onset, substernal with some radiation to left chest, and resolves spontaneously. She does not recall exactly how long the episodes last. She reports the pressure as moderate in intensity. No alleviating or aggravating factors. She has some associated palpitations, epigastric pain, headache, dizziness, and tinnitus but they do not all occur each time. She also reports shortness of breath that has been long-standing, and she reports her psychiatrist told her it is likely from anxiety. No recent stressors noted. She has been to the ED before for chest pain, including [facility] in 2014 in which she had a stress test but does not recall the results. 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 Her neighbor monitors her blood pressure, but she is unsure of the readings. She reports the chest pressure has resolved since arriving to the ED. [facility] [place] [id number] used for interview. ER course was notable for: (1) CXR showed slightly larger heart than previous exam but no cardiomegaly (2) EKG no acute ST changes, QTc 438 (3) trop negative x 1, BNP 328 PAST MEDICAL HISTORY: HTN, HLD, depression, anxiety, cervical radiculopathy PAST SURGICAL HISTORY: hysterectomy cholecystectomy Social History: Smoking: denies Alcohol: denies Drugs: denies Lives alone. Is disabled and has an aide help her around the house. Family History: pt denies family hx of HTN, MS, and stroke Allergies iodine Adverse Reaction (Severe, Verified 05/27/19 18:50) Difficulty Breathing gabapentin Adverse Reaction (Unknown, Verified 05/27/19 18:50) nausea, vomiting HOME MEDICATIONS: Home Medications Medication Instructions Recorded Aspirin [ASA -] 81 mg PO DAILY 06/09/16 Losartan Potassium [Cozaar -] 50 mg PO DAILY 01/06/18 Omeprazole 40 mg PO DAILY 07/13/18 Fluoxetine HCl [Prozac -] 10 mg PO DAILY 10/12/18 Hydrochlorothiazide [Hctz -] 25 mg PO DAILY 10/12/18 Atorvastatin Calcium [Lipitor] 10 mg PO HS 05/27/19 Calcium Carbonate/Vitamin D3 1 each PO DAILY 05/27/19 [Calcium 500 + Vit D3 400 Tab] Loratadine 10 mg PO HS 05/27/19 REVIEW OF SYSTEMS CONSTITUTIONAL: denies fever, chills, diaphoresis, fatigue CARDIOVASCULAR: reports chest pressure RESPIRATORY: reports shortness of breath GASTROINTESTINAL: reports abdominal pain denies nausea, vomiting MUSCULOSKELETAL: reports neck pain SKIN: denies bruising NEUROLOGIC: reports headache, dizziness denies loss of consciousness PSYCHIATRIC: reports anxiety, depression PHYSICAL EXAMINATION Vital Signs - 24 hr 05/27/19 18:47 Temperature 99.4 F Pulse Rate 71 Respiratory 17 Rate Blood Pressure 165/82 O2 Sat by Pulse 100 Oximetry (%) GENERAL: Awake, alert, and fully oriented, in no acute distress. [place] speaking. HEAD: Normal with no signs of trauma. EYES: Pupils equal, round and reactive to light, extraocular movements intact EARS, NOSE, THROAT: Ears normal, nares patent, moist mucous membranes. NECK: Normal range of motion, without JVD LUNGS: Clear to auscultation bilaterally, no accessory muscle use. HEART: Regular rate and rhythm, no murmur ABDOMEN: Soft, nontender, not distended, normoactive bowel sounds MUSCULOSKELETAL: Normal range of motion at all joints. UPPER EXTREMITIES: Warm, well-perfused. No peripheral edema. LOWER EXTREMITIES: Warm, well-perfused. No calf tenderness. Bilateral pedal edema. NEUROLOGICAL: Normal speech. PSYCHIATRIC: Cooperative. Good eye contact. Appropriate mood and affect. SKIN: Warm, dry, normal turgor Laboratory Results - last 24 hr 05/27/19 05/27/19 05/27/19 19:42 19:42 19:42 WBC 9.6 RBC 4.53 Hgb 13.5 Hct 40.8 MCV 90.2 MCH 29.7 MCHC 33.0 RDW 12.7 Plt Count 256 MPV 7.6 Absolute Neuts (auto) 7.0 Neutrophils % 73.4 Lymphocytes % 18.9 Monocytes % 6.9 Eosinophils % 0.2 D Basophils % 0.6 Nucleated RBC % 0 PT with INR 11.20 INR 0.95 Sodium 139 Potassium 4.2 Chloride 104 Carbon Dioxide 29 Anion Gap 7 L BUN 20.9 H Creatinine 0.9 Est GFR (CKD-EPI)AfAm 77.22 Est GFR (CKD-EPI)NonAf 66.63 Random Glucose 129 H Calcium 9.2 Magnesium 2.2 Total Bilirubin 0.3 AST 16 ALT 27 Alkaline Phosphatase 50 Troponin I B-Natriuretic Peptide 328.4 H Total Protein 7.6 Albumin 4.1 05/27/19 19:42 WBC RBC Hgb Hct MCV MCH MCHC RDW Plt Count MPV Absolute Neuts (auto) Neutrophils % Lymphocytes % Monocytes % Eosinophils % Basophils % Nucleated RBC % PT with INR INR Sodium Potassium Chloride Carbon Dioxide Anion Gap BUN Creatinine Est GFR (CKD-EPI)AfAm Est GFR (CKD-EPI)NonAf Random Glucose Calcium Magnesium Total Bilirubin AST ALT Alkaline Phosphatase Troponin I < 0.02 B-Natriuretic Peptide Total Protein Albumin ASSESSMENT/PLAN: Ms. Vernon Landers is a 64y/o female with HTN, HLD, depression, anxiety, and cervical radiculopathy who presents with intermittent chest pressure x 3 days. Her last stress test was in 2014 at [facility] but unsure of results. Given her chest pressure, hx of HTN and HLD, heart score of 4, ACS should be ruled out. #chest pressure Symptoms have resolved. EKG negative for acute ST changes, only possible LAE. Trop negative x 1. CXR shows slightly larger heart than previous exam. BNP elevated compared to 2015 (66-->328). ASA given in ED. HTN and HLD history. -repeat trop -echo -consider cards consult #HTN 165/82 -give home HCTZ and losartan now -check pressure and hold morning dose for hypotension -career development counselor on dietary changes #hyperglycemia BG 136. -A1C -UA -add SSI if needed FEN encourage PO intake monitor labs sodium diet DVT Ppx Lovenox Dispo Tele obs, possibly d/c if negative trop x 2 Visit type - Emergency Visit Emergency Visit: Yes ED Registration Date: 05/27/19 Care time: The patient presented to the Emergency Department on the above date and was hospitalized for further evaluation of their emergent condition. - New Patient This patient is new to me today: Yes Date on this admission: 05/28/19 - Critical Care Critical Care patient: No ATTENDING PHYSICIAN STATEMENT I saw and evaluated the patient. I reviewed the resident's note and discussed the case with the resident. I agree with the resident's findings and plan as documented. SUBJECTIVE: OBJECTIVE: ASSESSMENT AND PLAN:
[2019-05-27] MEDS ORDERED: HYDROCHLOROTHIAZIDE 25 MG TABLET (FP) PO SCH (23:24)
[2019-05-27] MEDS ORDERED: LOSARTAN POTASSIUM 50 MG TABLET (FP) PO SCH (23:25)
[2019-05-27] MEDS ORDERED: HYDROCHLOROTHIAZIDE 25 MG TABLET (FP) PO ONE (23:28)
[2019-05-27] MEDS ORDERED: LOSARTAN POTASSIUM 50 MG TABLET (FP) PO ONE (23:28)
[2019-05-28] MEDS ORDERED: LOSARTAN POTASSIUM 50 MG TABLET (FP) ONE (00:11)
[2019-05-28] MEDS ORDERED: HYDROCHLOROTHIAZIDE 25 MG TABLET (FP) ONE (00:11)
[2019-05-28] MEDS ORDERED: PIPERACILLIN/TAZOB 4.5 GM 4.5 GM in DEXTROSE 5%-WATER 100 ML IVPB SCH (03:00)
[2019-05-28 03:12] LABS: EPI CELLS 0.2 /HPF (0-5/HPF); HYALINE CASTS 0 /lpf (0-8); PH,URINE 7.5 (5.0-8.0); URINE APPEARANCE CLEAR; URINE BACTERIA 3.3 /hpf (NEGATIVE); URINE BILIRUBIN NEGATIVE (NEGATIVE); URINE COLOR YELLOW; URINE GLUCOSE (UA) NEGATIVE (NEGATIVE); URINE KETONE NEGATIVE (NEGATIVE); URINE LEUK ESTERASE TRACE (NEGATIVE); URINE NITRITE NEGATIVE (NEGATIVE); URINE PROTEIN NEGATIVE (NEGATIVE); URINE RBC 1 /hpf (0-4); URINE UROBILINOGEN 0.2 mg/dL (0.2-1.0); URINE WBC 2 /hpf (0-5)
[2019-05-28 06:55] LABS: HEMATOCRIT 38.3 % (32.4-45.2); HEMOGLOBIN 12.9 GM/dL (10.7-15.3); MCH 30.5 pg (25.7-33.7); MCHC 33.7 g/dl (32.0-36.0); MEAN CELL VOLUME 90.5 fl (80-96); MEAN PLT VOLUME 7.6 fl (7.5-11.1); PLATELET COUNT 222 K/MM3 (134-434); RBC 4.23 M/mm3 (3.60-5.2); RDW 13.2 % (11.6-15.6); WHITE BLOOD COUNT 8.4 K/mm3 (4.0-10.0)
[2019-05-28 07:04] VITALS: TEMP 98.3
[2019-05-28 07:12] LABS: ALBUMIN 3.5 g/dl (3.4-5.0); BILIRUBIN,TOTAL 0.4 mg/dL (0.2-1); BLOOD UREA NITROGEN 14.2 mg/dL (7-18); CALCIUM 8.9 mg/dL (8.5-10.1); CREATININE 0.7 mg/dL (0.55-1.3); MAGNESIUM 2.1 mg/dL (1.8-2.4); POTASSIUM 4.4 mmol/L (3.5-5.1); TOT PROT 6.6 g/dl (6.4-8.2)
--- NOTE | 2019-05-28 08:25 | EKG ---
Test Reason : Blood Pressure : / mmHG Vent. Rate : 070 BPM Atrial Rate : 070 BPM P-R Int : 130 ms QRS Dur : 086 ms QT Int : 406 ms P-R-T Axes : 062 077 061 degrees QTc Int : 438 ms NORMAL SINUS RHYTHM POSSIBLE LEFT ATRIAL ENLARGEMENT BORDERLINE ECG WHEN COMPARED WITH ECG OF 27-MAY-2019 18:28, NO SIGNIFICANT CHANGE WAS FOUND Confirmed by Kenzie Rios ([id number]) on 05/28/2019 8:24:36 AM Referred By: Confirmed By:Kenzie Rios
--- NOTE | 2019-05-28 09:53 | DS ---
Physical Exam: SUBJECTIVE: Patient seen and examined. no chest pain or dyspnea noted. feels well. OBJECTIVE: Vital Signs Period Temp Pulse Resp BP Sys/Borrego Pulse Ox Last 24 Hr 98.2 F-99.4 F 59-71 16-19 125-165/59-82 100-100 Intake & Output 05/25/19 05/26/19 05/27/19 05/28/19 23:59 23:59 23:59 23:59 Weight 132 lb PHYSICAL EXAM General: ambulating in hallway in no acute distress CVS:S1S2 regular Neck: soft, supple, no JVd Chest: CTAB, no rales or wheezing Abdomen: soft, obese, NT, pos bowel sounds Extremities: no edema Neuro: AAOx3, power 5/5, sensation intact and symmetric to light touch, gait normal, speech normal, cranial nerves II-XII intact LABS Laboratory Results - last 24 hr 05/27/19 05/27/19 05/27/19 19:42 19:42 19:42 WBC 9.6 RBC 4.53 Hgb 13.5 Hct 40.8 MCV 90.2 MCH 29.7 MCHC 33.0 RDW 12.7 Plt Count 256 MPV 7.6 Absolute Neuts (auto) 7.0 Neutrophils % 73.4 Lymphocytes % 18.9 Monocytes % 6.9 Eosinophils % 0.2 D Basophils % 0.6 Nucleated RBC % 0 PT with INR 11.20 INR 0.95 Sodium 139 Potassium 4.2 Chloride 104 Carbon Dioxide 29 Anion Gap 7 L BUN 20.9 H Creatinine 0.9 Est GFR (CKD-EPI)AfAm 77.22 Est GFR (CKD-EPI)NonAf 66.63 Random Glucose 129 H Hemoglobin A1c % Calcium 9.2 Magnesium 2.2 Total Bilirubin 0.3 AST 16 ALT 27 Alkaline Phosphatase 50 Troponin I B-Natriuretic Peptide 328.4 H Total Protein 7.6 Albumin 4.1 Urine Color Urine Appearance Urine pH Ur Specific [place] Urine Protein Urine Glucose (UA) Urine Ketones Urine Blood Urine Nitrite Urine Bilirubin Urine Urobilinogen Ur Leukocyte Esterase Urine WBC (Auto) Urine RBC (Auto) Urine Casts (Auto) U Epithel Cells (Auto) Urine Bacteria (Auto) 05/27/19 05/28/19 05/28/19 19:42 01:00 02:50 WBC RBC Hgb Hct MCV MCH MCHC RDW Plt Count MPV Absolute Neuts (auto) Neutrophils % Lymphocytes % Monocytes % Eosinophils % Basophils % Nucleated RBC % PT with INR INR Sodium Potassium Chloride Carbon Dioxide Anion Gap BUN Creatinine Est GFR (CKD-EPI)AfAm Est GFR (CKD-EPI)NonAf Random Glucose Hemoglobin A1c % Calcium Magnesium Total Bilirubin AST ALT Alkaline Phosphatase Troponin I < 0.02 < 0.02 B-Natriuretic Peptide Total Protein Albumin Urine Color Yellow Urine Appearance Clear Urine pH 7.5 D Ur Specific [place] 1.009 L Urine Protein Negative Urine Glucose (UA) Negative Urine Ketones Negative Urine Blood Negative Urine Nitrite Negative Urine Bilirubin Negative Urine Urobilinogen 0.2 Ur Leukocyte Esterase Trace Urine WBC (Auto) 2 Urine RBC (Auto) 1 Urine Casts (Auto) 0 U Epithel Cells (Auto) 0.2 Urine Bacteria (Auto) 3.3 05/28/19 05/28/19 05/28/19 05:30 05:30 05:30 WBC 8.4 RBC 4.23 Hgb 12.9 Hct 38.3 MCV 90.5 MCH 30.5 MCHC 33.7 RDW 13.2 Plt Count 222 MPV 7.6 Absolute Neuts (auto) Neutrophils % Lymphocytes % Monocytes % Eosinophils % Basophils % Nucleated RBC % PT with INR INR Sodium 140 Potassium 4.4 Chloride 109 H Carbon Dioxide 26 Anion Gap 5 L BUN 14.2 Creatinine 0.7 Est GFR (CKD-EPI)AfAm 104.64 Est GFR (CKD-EPI)NonAf 90.29 Random Glucose 92 Hemoglobin A1c % 5.5 Calcium 8.9 Magnesium 2.1 Total Bilirubin 0.4 AST 13 L ALT 24 Alkaline Phosphatase 44 L Troponin I B-Natriuretic Peptide Total Protein 6.6 Albumin 3.5 Urine Color Urine Appearance Urine pH Ur Specific [place] Urine Protein Urine Glucose (UA) Urine Ketones Urine Blood Urine Nitrite Urine Bilirubin Urine Urobilinogen Ur Leukocyte Esterase Urine WBC (Auto) Urine RBC (Auto) Urine Casts (Auto) U Epithel Cells (Auto) Urine Bacteria (Auto) Chest Xray, and EKG reviewed HOSPITAL COURSE: Date of Admission:05/27/19 Date of Discharge: 05/28/19 Minutes to complete discharge: 35 Discharge Summary Problems reviewed: Yes Reason For Visit: CHEST PAIN Current Active Problems Atypical chest howard. HTN HLD Cervical radiculopathy Anxiety Depression Phobia Hospital Course: 64 yof with PMHx of HTN, HLD, depression, anxiety, and cervical radiculopathy admitted with chest pain, associated with intermittent palpitations, dyspnea, anxiety. Has long standing h/o dyspnea per patient which has been attributed to anxiety by her psychiatrist. She was watched on telemetry and ACS was ruled out. She was asymptomatic and will be discharged in stable condition. She is advised outpatient cardiology referral and discuss additional tests including 2D echo and stress test if recurrent symptoms. Condition: Stable - Instructions Diet, Activity, Other Instructions: You were admitted with chest pain, trouble breathing and anxiety. You were watched on monitor and heart attack was ruled out. Your chest xray and blood work has been non concerning. Continue all your home medications as before. Follow up with your doctor in 1 week Please discuss with your doctor for outpatient cardiology referral and address additional testing including 2D echo and stress test. If you notice any severe symptoms, fevers, chills, or new concerns, please call 911 or come to ED. Referrals: Angeles Easton MD [Non Staff, Medical] - Disposition: HOME - Home Medications Comprehensive Discharge Medication List: Ambulatory Orders Aspirin [ASA -] 81 mg PO DAILY 06/09/16 Losartan Potassium [Cozaar -] 50 mg PO DAILY 01/06/18 Omeprazole 40 mg PO DAILY 07/13/18 Fluoxetine HCl [Prozac -] 10 mg PO DAILY 10/12/18 Hydrochlorothiazide [Hctz -] 25 mg PO DAILY 10/12/18 Atorvastatin Calcium [Lipitor] 10 mg PO HS 05/27/19 Calcium Carbonate/Vitamin D3 [Calcium 500-Vit D3 400 Tablet] 1 each PO DAILY 08/03 Loratadine 10 mg PO HS 05/27/19 Dextran 70/Hypromellose [Artificial Tears] 1 each OP QID 05/28/19 Olopatadine HCl 2.5 ml OP BID 05/28/19 This patient is new to me today: Yes Date on this admission: 05/28/19 Emergency Visit: Yes ED Registration Date: 05/27/19 Care time: The patient presented to the Emergency Department on the above date and was hospitalized for further evaluation of their emergent condition. Critical Care patient: No - Discharge Referral Referred to [facility] No
[2019-05-28] MEDS ORDERED: HYDROCHLOROTHIAZIDE 25 MG TABLET (FP) PO SCH ×2 (10:00)
[2019-05-28] MEDS ORDERED: ENOXAPARIN NA (PORCINE) 40 MG/0.4 ML DISP.SYRIN SQ SCH (10:00)
[2019-05-28] MEDS ORDERED: LOSARTAN POTASSIUM 50 MG TABLET (FP) PO SCH ×2 (10:00)
[2019-05-28] MEDS ORDERED: VANCOMYCIN 1 GM in D5W (PRE-DOCKED) 1,000 MG/250 ML IVPB SCH (10:00)
[2019-05-28] MEDS ORDERED: FLUoxetine HCL 10 MG CAPSULE (FP) PO SCH (10:00)
[2019-05-28] MEDS ORDERED: CHOLECALCIFEROL (VIT D3) 400 UNIT (10 MCG) TABLET PO SCH (10:00)
[2019-05-28] MEDS ORDERED: PATIENT'S OWN MEDICATION (NON-FORMULARY) (Calcium Carbonate/Vitamin D3 [Calcium 500-Vit D3 PO SCH (10:00)
[2019-05-28] MEDS ORDERED: CALCIUM (OYSTER SHELL) 500 MG TABLET (FP) PO SCH (10:00)
[2019-05-28 10:20] VITALS: BP 161/65; PULSE 68
[2019-05-28] MEDS ORDERED: LORATADINE 10 MG TABLET PO SCH (22:00)
[2019-05-28] MEDS ORDERED: ATORVASTATIN CA 10 MG TABLET (FP) PO SCH (22:00)
--- NOTE | 2019-05-29 12:57 | EKG ---
Test Reason : Blood Pressure : / mmHG Vent. Rate : 067 BPM Atrial Rate : 067 BPM P-R Int : 116 ms QRS Dur : 088 ms QT Int : 410 ms P-R-T Axes : 039 078 061 degrees QTc Int : 433 ms NORMAL SINUS RHYTHM NORMAL ECG WHEN COMPARED WITH ECG OF 11-AUG-2018 16:57, NO SIGNIFICANT CHANGE WAS FOUND Confirmed by EDI MANUEL MD ([id number]) on 05/29/2019 12:56:39 PM Referred By: Confirmed By:EDI MANUEL MD
== END 2019-05-28 10:34 | disposition home or self-care (01) ==
LOC: JER 18:32 → JERBED 20:47
PROVIDERS: ADMIT Internal Medicine; ATTEND Hospitalist
PROC: 3E0337Z Introduction of Electrolytic and Water Balance Substance into Peripheral Vein, Percutaneous Approach (ICD-10-PCS; principal; 2019-05-27)
PROC: 3E013GC Introduction of Other Therapeutic Substance into Subcutaneous Tissue, Percutaneous Approach (ICD-10-PCS; 2019-05-27)
DX: R07.89 Other chest pain (principal); I10 Essential (primary) hypertension; E78.5 Hyperlipidemia, unspecified; M54.9 Dorsalgia, unspecified; G89.29 Other chronic pain; M54.12 Radiculopathy, cervical region; F40.9 Phobic anxiety disorder, unspecified; F32.9 Major depressive disorder, single episode, unspecified; Z79.82 Long term (current) use of aspirin; Z91.048 Other nonmedicinal substance allergy status; Z88.8 Allergy status to other drugs, medicaments and biological substances; Z29.8 Encounter for other specified prophylactic measures
CPT/HCPCS: 36415; 71046-TC-FY; 80053; 81003; 83036; 83735; 83880; 84484; 85025; 85027; 85610; 93005; 93010; 96372; 99285-25; G0378; J7030

== ENCOUNTER 2020-08-02 04:56 | Day surgery (SDC) | payer MEDICARE ==
[2020-08-01 11:42] VITALS: BMI 27.3
[~2020-08-02 04:56] MED LIST: BUPIVACAINE HCL/PF 0.5% (5 MG/ML) 30 ML VIAL IJ ONE
[2020-08-02] MEDS ORDERED: BUPIVACAINE HCL/PF 0.25% (2.5MG/ML) 10 ML VIAL ONE (07:29)
[2020-08-02] MEDS ORDERED: LIDOCAINE HCL/PF 1% SDV 5ML VIAL ONE (07:29)
[2020-08-02] MEDS ORDERED: BUPIVACAINE HCL/PF 0.5% (5 MG/ML) 30 ML VIAL IJ ONE (11:24)
[2020-08-02 11:53] VITALS: BP 128/64; PULSE 64; TEMP 96.9
== END 2020-08-02 12:45 | disposition home or self-care (01) ==
LOC: JASU-SURG 04:56
PROVIDERS: ATTEND Pain Medicine Pain Medicine
PROC: BR14YZZ Fluoroscopy of Cervical Facet Joint(s) using Other Contrast (ICD-10-PCS; 2020-08-02)
PROC: 3E0T3BZ Introduction of Anesthetic Agent into Peripheral Nerves and Plexi, Percutaneous Approach (ICD-10-PCS; principal; 2020-08-02 11:00)
DX: M47.812 Spondylosis without myelopathy or radiculopathy, cervical region (principal)

== ENCOUNTER 2020-08-23 04:33 | Day surgery (SDC) | payer MEDICARE, OTHER ==
[2020-08-21 10:14] VITALS: BMI 27.3
[2020-08-23] MEDS ORDERED: LIDOCAINE 1% P/F 10 MG/ML VIAL INF ONE (12:42)
[2020-08-23] MEDS ORDERED: BUPIVACAINE HCL/PF 0.75% 10 ML VIAL NR ONE (12:44)
[2020-08-23 14:17] VITALS: BP 129/60; PULSE 70; TEMP 97.6
== END 2020-08-23 15:20 | disposition home or self-care (01) ==
LOC: JASU-SURG 04:33
PROVIDERS: ATTEND Pain Medicine Pain Medicine
PROC: 3E0T3BZ Introduction of Anesthetic Agent into Peripheral Nerves and Plexi, Percutaneous Approach (ICD-10-PCS; principal; 2020-08-23)
PROC: 3E0T33Z Introduction of Anti-inflammatory into Peripheral Nerves and Plexi, Percutaneous Approach (ICD-10-PCS; 2020-08-23)
DX: M47.816 Spondylosis without myelopathy or radiculopathy, lumbar region (principal)
CPT/HCPCS: 76000-TC-FY

== ENCOUNTER 2020-09-20 04:21 | Day surgery (SDC) | payer MEDICARE, OTHER ==
[2020-09-20] MEDS ORDERED: LIDOCAINE HCL 1% PRESERVATIVE FREE - 30ML VIAL IJ ONE (10:26)
[2020-09-20] MEDS ORDERED: BUPIVACAINE HCL/PF 0.75% 10 ML VIAL NR ONE (10:29)
[2020-09-20 12:23] VITALS: BP 120/68; PULSE 66; TEMP 97.8
== END 2020-09-20 12:00 | disposition home or self-care (01) ==
LOC: JASU-SURG 04:21
PROVIDERS: ATTEND Pain Medicine Pain Medicine
PROC: 3E0T33Z Introduction of Anti-inflammatory into Peripheral Nerves and Plexi, Percutaneous Approach (ICD-10-PCS; 2020-09-20)
PROC: BR16YZZ Fluoroscopy of Lumbar Facet Joint(s) using Other Contrast (ICD-10-PCS; 2020-09-20)
PROC: 3E0T3BZ Introduction of Anesthetic Agent into Peripheral Nerves and Plexi, Percutaneous Approach (ICD-10-PCS; principal; 2020-09-20 15:00)
DX: M47.816 Spondylosis without myelopathy or radiculopathy, lumbar region (principal)
CPT/HCPCS: 76000-TC-FY

== ENCOUNTER 2021-06-27 04:20 | Day surgery (SDC) | payer MEDICARE, OTHER ==
[2021-06-26 08:49] VITALS: BMI 27.1
[2021-06-27] MEDS ORDERED: BUPIVACAINE HCL/PF 0.5% (5 MG/ML) 30 ML VIAL IJ ONE (10:59)
[2021-06-27 11:53] VITALS: BP 111/61; PULSE 65
[2021-06-27 12:01] VITALS: TEMP 97.1
== END 2021-06-27 12:01 | disposition home or self-care (01) ==
LOC: JASU-SURG 04:20
PROVIDERS: ATTEND Pain Medicine Pain Medicine
PROC: BR14YZZ Fluoroscopy of Cervical Facet Joint(s) using Other Contrast (ICD-10-PCS; 2021-06-27)
PROC: 3E0T3BZ Introduction of Anesthetic Agent into Peripheral Nerves and Plexi, Percutaneous Approach (ICD-10-PCS; principal; 2021-06-27 09:30)
DX: M47.812 Spondylosis without myelopathy or radiculopathy, cervical region (principal)
CPT/HCPCS: 76000-TC-FY

== ENCOUNTER 2021-10-31 04:13 | Day surgery (SDC) | payer MEDICARE, OTHER ==
[2021-10-28 17:04] VITALS: BMI 26.4
[2021-10-31] MEDS ORDERED: BUPIVACAINE HCL/PF 0.75% 10 ML VIAL ONE (07:08)
[2021-10-31] MEDS ORDERED: LIDOCAINE HCL/PF 1% SDV 5ML VIAL ONE ×3 (07:08→08:59)
[2021-10-31] MEDS ORDERED: DEXAMETHASONE SOD PHOSPHATE 10 MG/1 ML VIAL ONE ×2 (07:09→09:00)
[2021-10-31] MEDS ORDERED: LIDOCAINE HCL/PF 2% SDV 5ML VIAL ONE (07:12)
[2021-10-31] MEDS ORDERED: BUPIVACAINE HCL/PF 0.75% 10 ML VIAL NR ONE ×2 (09:27→09:29)
[2021-10-31] MEDS ORDERED: LIDOCAINE 1% P/F 10 MG/ML VIAL INF ONE (09:27)
[2021-10-31 09:49] VITALS: BP 130/69; PULSE 64; TEMP 97.8
== END 2021-10-31 10:00 | disposition home or self-care (01) ==
LOC: JASU-SURG 04:13
PROVIDERS: ATTEND Pain Medicine Pain Medicine
PROC: BR16YZZ Fluoroscopy of Lumbar Facet Joint(s) using Other Contrast (ICD-10-PCS; 2021-10-31)
PROC: 3E0T3BZ Introduction of Anesthetic Agent into Peripheral Nerves and Plexi, Percutaneous Approach (ICD-10-PCS; principal; 2021-10-31 09:00)
DX: M47.816 Spondylosis without myelopathy or radiculopathy, lumbar region (principal)
CPT/HCPCS: 76000-TC-FY; J1100